=== PATIENT | male | born 2000 | race Two or more races ===

== ENCOUNTER → 2018-05-27 | Outpatient (CLI) | payer BC | LOC: LAB 15:47 | PROVIDERS: ATTEND Pediatrics Pediatric Endocrinology | DX: E23.0 Hypopituitarism (principal) | CPT/HCPCS: 36415; 82533; 84305; 84439 ==

== ENCOUNTER → 2019-03-24 | Outpatient (CLI) | payer BC ==
[2019-03-24 09:13] LABS: LDL CHOLESTEROL 67 mg/dl
== END ==
LOC: LAB 08:30
DX: E23.0 Hypopituitarism (principal)
CPT/HCPCS: 36415; 82040; 82247; 82310; 82374; 82435; 82465; 82533; 82565; 82947; 83036; 83718; 84075; 84132; 84155; 84295; 84403; 84439; 84450; 84460; 84478; 84520